=== PATIENT | male | born 1955 | race Caucasian/White ===

== ENCOUNTER 2017-11-05 18:43 | Emergency (ER) | payer OTHER, BC ==
[~2017-11-05] VITALS: Ht 185.4 cm; Wt 111.8 kg
[~2017-11-05 18:43] MED LIST: PRAVACHOL40 MG PO
[2017-11-05 20:17] VITALS: BP 152/93
== END 2017-11-05 20:27 | disposition home or self-care (01) ==
LOC: EME 18:43
DX: S46.212A Strain of muscle, fascia and tendon of other parts of biceps, left arm, initial encounter (principal); X50.9XXA Other and unspecified overexertion or strenuous movements or postures, initial encounter; Y93.89 Activity, other specified; E78.5 Hyperlipidemia, unspecified; F41.9 Anxiety disorder, unspecified
CPT/HCPCS: 99281; 99283